=== PATIENT | male | born 1975 | race Caucasian/White ===

== ENCOUNTER 2017-12-26 21:24 | Emergency (ER) | payer SELFPAY ==
[~2017-12-26] VITALS: Ht 175.3 cm; Wt 85.7 kg
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
--- NOTE | 2017-12-26 21:27 | NUR ---
17G IV TO R WRIST X 1 ATTEMPT USING ASEPTIC TECH. IV FLUSHES EASILY WITH NS, NO S/S INFILTRATION NOTED AT THIS TIME.
[2017-12-26] MEDS ORDERED: SODIUM BICARBONATE SYR 50 MEQ/50 ML DISP.SYRIN IV ONE (21:28)
[2017-12-26] MEDS ORDERED: EPINEPHRINE (1:10,000) SYRINGE 1 MG/10 ML DISP.SYRIN IVP ONE (21:28)
--- NOTE | 2017-12-26 21:43 | NUR ---
PT PRONOUNCED BY DR FRANKLIN.
--- NOTE | 2017-12-26 21:45 | NUR ---
[facility], ADMITTING AND SECURITY NOTIFIED OF .
--- NOTE | 2017-12-26 21:55 | NUR ---
[facility] TO REPORT . SPOKE WITH TALAT. PER TALAT REQUESTING TO HAVE [employer] REPORT TO [employer]OR [employer]'S OFFICE
--- NOTE | 2017-12-26 22:06 | NUR ---
[facility] CALLED AND REPORTED. SPOKE WITH ROMY. CC [phone]
[2017-12-26] MEDS ORDERED: NALOXONE PREFILLED SYRINGE 2 MG/2 ML SYRINGE ONE (22:24)
--- NOTE | 2017-12-26 23:55 | NUR ---
BODY TAKEN TO [facility] VIA GURNEY WITH SECURITY AND EMT.
== END 2017-12-27 00:14 | disposition expired ==
LOC: ER 21:27
DX: I46.9 Cardiac arrest, cause unspecified (principal)
CPT/HCPCS: 31500; 82962; 92950; 99285; J0171; J2310; J3490; L0172; A4606; Z7610